=== PATIENT | male | born 2000 | race Caucasian/White ===

== ENCOUNTER 2022-09-06 | Emergency (ER) | payer BC ==
[~2022-09-06] VITALS: Ht 167.6 cm; Wt 79.0 kg
[2022-09-06 00:05] VITALS: BP 108/68
== END 2022-09-06 01:42 | disposition left against medical advice (07) ==
LOC: ER 00:16
DX: Z53.21 Procedure and treatment not carried out due to patient leaving prior to being seen by health care provider (principal)